=== PATIENT | male | born 1980 | race American Indian/Alaskan Native ===

== ENCOUNTER 2017-07-16 12:39 | Emergency (ER) | payer OTHER ==
[2017-07-16 13:18] LABS: Basophils % (Auto) 0.9 % (0.0-1.8); Eosinophils % (Auto) 0.4 % (0.0-4.3); Hemoglobin 15.5 gm/dl (11.8-15.2); Mean Corpuscular HGB Conc 34 % (32-34); Mean Corpuscular Hemoglobin 31 pg (28-32); Mean Corpuscular Volume 91 fl (84-94); Platelet Count 192 K/mm3 (140-440); Red Blood Count 5.04 M/mm3 (3.65-5.03); Red Cell Distribution Width 13.6 % (13.2-15.2); White Blood Count 8.5 K/mm3 (4.5-11.0)
[2017-07-16 13:35] LABS: Anion Gap 16 mmol/L; Blood Urea Nitrogen 10 mg/dL (9-20); Calcium 9.2 mg/dL (8.4-10.2); Carbon Dioxide 26 mmol/L (22-30); Chloride 101.1 mmol/L (98-107); Glucose 106 mg/dL (75-100); Potassium 4.3 mmol/L (3.6-5.0); Sodium 139 mmol/L (137-145)
[2017-07-17 01:08] VITALS: BP 116/62
--- NOTE | 2017-07-17 01:10 | Emergency Department Report ---
HPI - General Chief Complaint: Arrhythmia/Palpitations Time Seen by Provider: 07/17/17 00:53 - HPI HPI: This is a 36 year-old male presents to the emergency department from home with complaint of some palpitations that occurred earlier this morning. He said he woke up feeling like his heart was beating very fast. He just rested at home for a while and it appeared to improve if not resolved but he decided to come in and get checked out as he said that a few days ago he had some left-sided chest "twinges." He denies any shortness of breath, nausea , vomiting, diaphoresis, back pain. He is a former smoker. He denies any alcohol or illicit drug use or abuse. The patient says he was evaluated by [facility] a month or so ago and had multiple tests done and "everything was fine." He did not take anything for her symptoms prior to presentation. Patient currently says he is asymptomatic. ED Past Medical Hx - Past Medical History Previous Medical History?: No - Surgical History Past Surgical History?: No - Social History Smoking Status: Never Smoker Substance Use Type: None, Alcohol ED Review of Systems ROS: Stated complaint: WEAK/FAST HEART RATE Other details as noted in HPI Comment: All other systems reviewed and negative Constitutional: denies: chills, fever Eyes: denies: eye pain, eye discharge, vision change ENT: denies: ear pain, throat pain Respiratory: denies: cough, shortness of breath, wheezing Cardiovascular: palpitations. denies: edema Gastrointestinal: denies: abdominal pain, nausea, diarrhea Genitourinary: denies: urgency, dysuria Musculoskeletal: denies: back pain, joint swelling, arthralgia Skin: denies: rash, lesions Neurological: denies: headache, weakness, paresthesias Physical Exam - Physical Exam Vital Signs: Vital Signs 07/16/17 07/16/17 07/16/17 12:42 19:40 22:49 Temperature 98.8 F 98.8 F 98.2 F Pulse Rate 93 H 59 L 85 Respiratory 18 18 18 Rate Blood Pressure 117/80 139/79 122/82 O2 Sat by Pulse 99 100 99 Oximetry Physical Exam: GENERAL: The patient is well-developed well-nourished. HENT: Normocephalic. Atraumatic. Patient has moist mucous membranes. EYES: Extraocular motions are intact. Pupils equal reactive to light bilaterally. NECK: Supple. Trachea is midline. CHEST/LUNGS: Clear to auscultation. There is no respiratory distress noted. HEART/CARDIOVASCULAR: Regular. There is no tachycardia. There is no gallop rub or murmur. ABDOMEN: Abdomen is soft, nontender. Patient has normal bowel sounds. There is no abdominal distention. SKIN: Skin is warm and dry. NEURO: The patient is awake, alert, and oriented. The patient is cooperative. The patient has no focal neurologic deficits. The patient has normal speech. MUSCULOSKELETAL: There is no tenderness or deformity. There is no limitation range of motion. There is no evidence of acute injury. ED Course Vital Signs 07/16/17 07/16/17 07/16/17 12:42 19:40 22:49 Temperature 98.8 F 98.8 F 98.2 F Pulse Rate 93 H 59 L 85 Respiratory 18 18 18 Rate Blood Pressure 117/80 139/79 122/82 O2 Sat by Pulse 99 100 99 Oximetry ED Medical Decision Making - Lab Data Result diagrams: 07/16/17 13:05 07/16/17 13:05 - EKG Data -: EKG Interpreted by Id EKG shows normal: sinus rhythm, axis, intervals, QRS complexes, ST-T waves ( early repolarization) Rate: normal - EKG Data When compared to previous EKG there are: previous EKG unavailable Interpretation: other (sinus rhythm, early repolarization) 07/17/17 04:24 Repeat EKG shows normal sinus rhythm with sinus arrhythmia. Rate of 72 bpm, early repolarization, normal EKG. - Radiology Data Radiology results: image reviewed interpreted by me: Chest x-ray does not show any acute process. There are no pleural effusions, obvious pneumonia and there is no pneumothorax. - Medical Decision Making 36-year-old male presents with some palpitations that occurred earlier but have since resolved. EKG shows some sinus arrhythmia and some early repolarization but otherwise no ST elevation RI or signs of ischemia. Vital signs stable throughout his ED course. Labs are unremarkable including negative troponins 2 and normal thyroid function. Normal electrolytes. Patient has been a symptom max since being in the emergency department. He was reevaluated multiple times for multiple hours and is resting comfortably and remains a symptomatically. He has good follow-up with primary care and cardiology. He will return to ER if any worsening of symptoms or any acute distress. - Differential Diagnosis hyperthyroidism, RI, dysrhythmia Critical Care Time: No Critical care attestation.: If time is entered above; I have spent that time in minutes in the direct care of this critically ill patient, excluding procedure time. ED Disposition Clinical Impression: Palpitations Disposition: DC-01 TO HOME OR SELFCARE Is pt being admited?: No Does the pt Need Aspirin: No Condition: Stable Instructions: Palpitations (ED) Additional Instructions: Please follow-up with your primary care doctor and/or field checker. Return to the emergency Department with any worsening of your symptoms or any acute distress. Referrals: PRIMARY CARE, [Primary Care Provider] - [facility] Forms: Work/School Release Form(ED) Time of Disposition: 04:04
--- NOTE | 2017-07-17 07:32 | XRay Report ---
AP CHEST: HISTORY: Palpitations AP view of the chest demonstrates a normal mediastinal and cardiac contour with clear lungs and normal bony and soft tissue structures. IMPRESSION: Unremarkable AP chest.
== END 2017-07-17 04:35 | disposition home or self-care (01) ==
LOC: ED 12:39
DX: R00.2 Palpitations (principal)
CPT/HCPCS: 36415; 71010; 80048; 84443; 84484; 85025; 93005; 93010; 99284

== ENCOUNTER 2017-08-23 07:15 | Outpatient (CLI) | payer OTHER ==
[2017-08-23] MEDS ORDERED: NACL ONE (07:33)
[2017-08-23 08:06] LABS: Blood Urea Nitrogen 12 mg/dL (9-20)
--- NOTE | 2017-08-23 10:22 | Cat Scan Report ---
CTA NECK: HISTORY: Thyroid goiter, enlarged thyroid gland. TECHNIQUE: Helical CT following IV contrast. Sagittal and coronal reformatted images. Rotational MIP images. Stenosis was calculated using NASCET criteria. FINDINGS: The visualized aortic arch, innominate artery and proximal bilateral subclavian arteries are widely patent with less than 20% stenosis. Within the right carotid system: No hemodynamically significant stenosis.. Within the left carotid system: No hemodynamically significant stenosis. The cervical vertebral arteries are patent with less than 20% stenosis. There is marked enlargement and heterogeneity of the right thyroid lobe. The right thyroid lobe measures 12.0 x 6.5 x 7.5 cm. The left thyroid lobe appears normal measuring 5.7 x 1.5 x 1.5 cm. The isthmus is normal. The thyroid gland exerts mass effect on the trachea and displaces it to the left but it remains widely patent. There is no evidence for bulky cervical adenopathy. The bony structures are within normal limits. The lung apices are clear. IMPRESSION: Unremarkable CTA of the neck. Marked diffuse enlargement and heterogeneity of the right thyroid lobe. This is accessible for ultrasound-guided biopsy if needed.
== END 2017-08-23 07:16 | disposition home or self-care (01) ==
LOC: CT 07:15
PROVIDERS: ATTEND Internal Medicine
DX: E01.0 Iodine-deficiency related diffuse (endemic) goiter (principal)
CPT/HCPCS: 36415; 70498; 82565; 84520; Q9967

== ENCOUNTER 2017-10-12 16:21 | Emergency (ER) | payer OTHER ==
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
[2017-10-12 19:54] VITALS: BP 122/74
== END 2017-10-12 19:54 | disposition home or self-care (01) ==
LOC: ED 16:21
DX: M54.6 Pain in thoracic spine (principal)
CPT/HCPCS: 99282